=== PATIENT | female | born 1955 | race African-American/Black ===

== ENCOUNTER 2017-02-05 17:24 | Inpatient (IN) | payer OTHER ==
[~2017-02-05] VITALS: Ht 162.6 cm; Wt 62.1 kg
[2017-02-05 18:13] LABS: BASOPHIL (%) 0.2 % (0-1); EOSINOPHIL (%) 0 % (0-5); HEMATOCRIT 35.8 % (36.0-46.0); HEMOGLOBIN 12.5 G/DL (11.9-15.5); IMMATURE GRANULOCYTE (%) 0.6 % (0.0-0.7); LYMPHOCYTE (%) 6.7 % (15-42); LYMPHOCYTE COUNT 1.5 K/uL (1.0-2.8); MCH 32.5 PG (29.0-34.0); MCHC 34.9 G/DL (30.0-36.0); MONOCYTE (%) 8.4 % (3-12); MONOCYTE COUNT 1.9 K/uL (0-0.8); NEUTROPHIL (%) 84.1 % (45-76); NEUTROPHIL COUNT 19.2 K/uL (1.8-6.4); PLATELET COUNT 383 K/uL (156-360); RBC DIS.WIDTH-CV 12.4 % (11.8-14.6); RBC DIS.WIDTH-SD 42.2 % (39-53); RED BLOOD COUNT 3.85 M/uL (3.80-5.20); WHITE BLOOD COUNT 22.8 K/uL (4.1-10.2)
[2017-02-05 18:24] LABS: CHLORIDE 94 mEq/L (99-109); POTASSIUM 3.7 mEq/L (3.7-5.4); SODIUM 127 mEq/L (136-147)
[2017-02-05 18:25] LABS: GLUCOSE 332 mg/dL (70-99)
[2017-02-05 18:29] LABS: CREATININE 0.9 mg/dL (0.6-1.3)
[2017-02-05 18:30] LABS: UREA NITROGEN (BUN) 17 mg/dL (9-23)
[2017-02-05 18:41] LABS: GFR ESTIMATE (CALCULATED) > 59 mL/min/
[2017-02-05 22:24] LABS: APPEARANCE CLOUDY ((CLEAR)); BILIRUBIN NEGATIVE; BLOOD SMALL; COLOR AMBER ((YELLOW)); GLUCOSE (STRIP) >=500; KETONES 5; LEUKOCYTES NEGATIVE; NITRITE NEGATIVE; PROTEIN (STRIP) >=500; SPECIFIC GRAVITY 1.032 (1.000-1.030)
[2017-02-05] MEDS ORDERED: ERGOCALCIF50000 UNIT PO (22:30)
[2017-02-05] MEDS ORDERED: BASAGLAR K100 UNIT/1 SC (22:32)
[2017-02-05] MEDS ORDERED: LISINOPRIL10 MG PO (22:34)
[2017-02-05] MEDS ORDERED: PAROXETINE HCL30 MG PO (22:35)
[2017-02-05] MEDS ORDERED: PRAVASTATIN SOD40 MG PO (22:36)
[2017-02-05] MEDS ORDERED: CLOPIDOGREL75 MG PO (22:37)
[2017-02-05 22:40] LABS: BACTERIA 1+ /HPF; EPITHELIAL CELLS 2+ /HPF; MUCUS NONE SEEN /LPF; RED BLOOD CELLS 0-5 /HPF (0-5); UCUL ADDED? NO; WHITE BLOOD CELLS 0-5 /HPF (0-5)
[2017-02-05 22:41] LABS: COARSE GRANULAR CASTS 0-5 /LPF; FINE GRANULAR CASTS 0-5 /LPF; HYALINE CASTS 15-20 /LPF
[2017-02-05 22:42] LABS: AMORPHOUS URATES CRYSTALS 3+
[2017-02-06 02:12] VITALS: BP 127/61
[2017-02-06 07:41] VITALS: BP 142/69
[2017-02-06 08:22] LABS: BASOPHIL (%) 0.2 % (0-1); BASOPHIL COUNT 0.1 K/uL (0-0.1); EOSINOPHIL (%) 0.1 % (0-5); HEMATOCRIT 32.4 % (36.0-46.0); HEMOGLOBIN 11.1 G/DL (11.9-15.5); IMMATURE GRANULOCYTE (%) 0.5 % (0.0-0.7); LYMPHOCYTE (%) 11.1 % (15-42); LYMPHOCYTE COUNT 2.8 K/uL (1.0-2.8); MCH 32.6 PG (29.0-34.0); MCHC 34.3 G/DL (30.0-36.0); MONOCYTE (%) 10.4 % (3-12); MONOCYTE COUNT 2.7 K/uL (0-0.8); NEUTROPHIL (%) 77.7 % (45-76); NEUTROPHIL COUNT 19.8 K/uL (1.8-6.4); PLATELET COUNT 345 K/uL (156-360); RBC DIS.WIDTH-CV 12.7 % (11.8-14.6); RBC DIS.WIDTH-SD 44.3 % (39-53); RED BLOOD COUNT 3.41 M/uL (3.80-5.20); WHITE BLOOD COUNT 25.5 K/uL (4.1-10.2)
[2017-02-06 08:47] LABS: CHLORIDE 99 MEQ/L (99-109); CREATININE 0.8 MG/DL (0.6-1.3); GFR ESTIMATE (CALCULATED) > 59 mL/min/; GLUCOSE 172 mg/dL (70-99); POTASSIUM 3.4 MEQ/L (3.7-5.4); SODIUM 134 MEQ/L (136-147); UREA NITROGEN (BUN) 14 mg/dL (9-23)
[2017-02-06 11:41] VITALS: BP 190/96
[2017-02-06 12:39] LABS: Estimated Average Glucose 315 mg/dL (70-123); HEMOGLOBIN A1c (GLYCOHEMOGLOB) 12.6 % HGB (Below 5.7)
[2017-02-06 15:19] VITALS: BP 159/69
[2017-02-06 19:19] VITALS: BP 122/75
[2017-02-06 20:00] VITALS: BP 111/58
[2017-02-07] VITALS (7 sets, daily range): BP systolic 131–197; BP diastolic 61–93
[2017-02-07 06:50] LABS: BASOPHIL (%) 0.2 % (0-1); EOSINOPHIL (%) 0.2 % (0-5); HEMATOCRIT 29.2 % (36.0-46.0); IMMATURE GRANULOCYTE (%) 0.5 % (0.0-0.7); LYMPHOCYTE (%) 16.9 % (15-42); LYMPHOCYTE COUNT 3.1 K/uL (1.0-2.8); MCH 32.7 PG (29.0-34.0); MCHC 34.2 G/DL (30.0-36.0); MCV 95.4 FL (83-99); MONOCYTE (%) 9.7 % (3-12); MONOCYTE COUNT 1.8 K/uL (0-0.8); NEUTROPHIL (%) 72.5 % (45-76); NEUTROPHIL COUNT 13.2 K/uL (1.8-6.4); PLATELET COUNT 360 K/uL (156-360); RBC DIS.WIDTH-CV 12.7 % (11.8-14.6); RBC DIS.WIDTH-SD 44.8 % (39-53); RED BLOOD COUNT 3.06 M/uL (3.80-5.20); WHITE BLOOD COUNT 18.2 K/uL (4.1-10.2)
[2017-02-07 07:19] LABS: CHLORIDE 102 MEQ/L (99-109); CREATININE 0.9 MG/DL (0.6-1.3); GFR ESTIMATE (CALCULATED) > 59 mL/min/; GLUCOSE 113 mg/dL (70-99); POTASSIUM 4.1 MEQ/L (3.7-5.4); SODIUM 135 MEQ/L (136-147); UREA NITROGEN (BUN) 14 mg/dL (9-23)
[2017-02-08] VITALS (7 sets, daily range): BP systolic 140–188; BP diastolic 72–90
[2017-02-08 06:19] LABS: BASOPHIL (%) 0.3 % (0-1); EOSINOPHIL (%) 0.5 % (0-5); EOSINOPHIL COUNT 0.1 K/uL (0-0.3); HEMATOCRIT 32.5 % (36.0-46.0); HEMOGLOBIN 11.1 G/DL (11.9-15.5); IMMATURE GRANULOCYTE (%) 0.5 % (0.0-0.7); LYMPHOCYTE (%) 14.4 % (15-42); LYMPHOCYTE COUNT 2.1 K/uL (1.0-2.8); MCH 32.6 PG (29.0-34.0); MCHC 34.2 G/DL (30.0-36.0); MCV 95.6 FL (83-99); MONOCYTE (%) 11.5 % (3-12); MONOCYTE COUNT 1.7 K/uL (0-0.8); NEUTROPHIL (%) 72.8 % (45-76); NEUTROPHIL COUNT 10.7 K/uL (1.8-6.4); PLATELET COUNT 421 K/uL (156-360); RBC DIS.WIDTH-CV 12.8 % (11.8-14.6); RBC DIS.WIDTH-SD 45.6 % (39-53); WHITE BLOOD COUNT 14.7 K/uL (4.1-10.2)
[2017-02-08 06:44] LABS: ALBUMIN 2.1 G/DL (3.2-4.8); ALKALINE PHOSPHATASE 88 IU/L (3-129); ALT (GPT) 5 IU/L (3-49); AST (GOT) 13 IU/L (2-34); CHLORIDE 105 MEQ/L (99-109); CREATININE 1.1 MG/DL (0.6-1.3); GFR ESTIMATE (CALCULATED) > 59 mL/min/; GLUCOSE 85 mg/dL (70-99); POTASSIUM 4.1 MEQ/L (3.7-5.4); SODIUM 139 MEQ/L (136-147); TOTAL BILIRUBIN 0.3 MG/DL (0.0-1.0); TOTAL PROTEIN 5.2 G/DL (6.4-8.3); UREA NITROGEN (BUN) 14 mg/dL (9-23)
[2017-02-08 08:58] LABS: HDL CHOLESTEROL 34 MG/DL (Desirable>=50); LDL CHOLESTEROL 98 mg/dL (Desirable<100); NON-HDL CHOLESTEROL 121 mg/dL (Desirable<160); TOTAL CHOLESTEROL 155 mg/dL (Desirable<200); TRIGLYCERIDES 116 MG/DL (Normal: <150)
[2017-02-09 03:30] VITALS: BP 182/84
[2017-02-09 07:24] LABS: BASOPHIL (%) 0.4 % (0-1); BASOPHIL COUNT 0.1 K/uL (0-0.1); EOSINOPHIL (%) 1.3 % (0-5); EOSINOPHIL COUNT 0.2 K/uL (0-0.3); HEMATOCRIT 32.9 % (36.0-46.0); HEMOGLOBIN 11.3 G/DL (11.9-15.5); IMMATURE GRANULOCYTE (%) 0.4 % (0.0-0.7); LYMPHOCYTE (%) 16.4 % (15-42); LYMPHOCYTE COUNT 2.2 K/uL (1.0-2.8); MCH 32.8 PG (29.0-34.0); MCHC 34.3 G/DL (30.0-36.0); MCV 95.4 FL (83-99); MONOCYTE (%) 12.2 % (3-12); MONOCYTE COUNT 1.6 K/uL (0-0.8); NEUTROPHIL (%) 69.3 % (45-76); NEUTROPHIL COUNT 9.1 K/uL (1.8-6.4); PLATELET COUNT 453 K/uL (156-360); RBC DIS.WIDTH-CV 12.7 % (11.8-14.6); RED BLOOD COUNT 3.45 M/uL (3.80-5.20); WHITE BLOOD COUNT 13.1 K/uL (4.1-10.2)
[2017-02-09 07:46] LABS: ALBUMIN 2.2 G/DL (3.2-4.8); ALKALINE PHOSPHATASE 86 IU/L (3-129); ALT (GPT) 5 IU/L (3-49); AST (GOT) 12 IU/L (2-34); CHLORIDE 105 MEQ/L (99-109); CREATININE 1.1 MG/DL (0.6-1.3); GFR ESTIMATE (CALCULATED) > 59 mL/min/; GLUCOSE 75 mg/dL (70-99); POTASSIUM 3.8 MEQ/L (3.7-5.4); SODIUM 140 MEQ/L (136-147); TOTAL BILIRUBIN 0.3 MG/DL (0.0-1.0); TOTAL PROTEIN 5.2 G/DL (6.4-8.3); UREA NITROGEN (BUN) 13 mg/dL (9-23)
[2017-02-09 08:00] VITALS: BP 178/80
[2017-02-09 12:00] VITALS: BP 179/87
[2017-02-09 16:00] VITALS: BP 186/84
[2017-02-09 20:28] VITALS: BP 190/84
[2017-02-09 23:39] VITALS: BP 180/79
[2017-02-10 03:56] VITALS: BP 167/73
[2017-02-10 05:15] LABS: BASOPHIL (%) 0.7 % (0-1); BASOPHIL COUNT 0.1 K/uL (0-0.1); EOSINOPHIL (%) 1.1 % (0-5); EOSINOPHIL COUNT 0.1 K/uL (0-0.3); HEMATOCRIT 34.2 % (36.0-46.0); HEMOGLOBIN 11.4 G/DL (11.9-15.5); IMMATURE GRANULOCYTE (%) 0.5 % (0.0-0.7); LYMPHOCYTE (%) 18.8 % (15-42); LYMPHOCYTE COUNT 2.2 K/uL (1.0-2.8); MCH 31.5 PG (29.0-34.0); MCHC 33.3 G/DL (30.0-36.0); MCV 94.5 FL (83-99); MONOCYTE (%) 11.4 % (3-12); MONOCYTE COUNT 1.3 K/uL (0-0.8); NEUTROPHIL (%) 67.5 % (45-76); NEUTROPHIL COUNT 7.8 K/uL (1.8-6.4); PLATELET COUNT 504 K/uL (156-360); RBC DIS.WIDTH-CV 12.5 % (11.8-14.6); RBC DIS.WIDTH-SD 43.6 % (39-53); RED BLOOD COUNT 3.62 M/uL (3.80-5.20); WHITE BLOOD COUNT 11.5 K/uL (4.1-10.2)
[2017-02-10 05:54] LABS: ALBUMIN 2.1 G/DL (3.2-4.8); ALKALINE PHOSPHATASE 79 IU/L (3-129); ALT (GPT) 5 IU/L (3-49); AST (GOT) 13 IU/L (2-34); CHLORIDE 103 MEQ/L (99-109); CREATININE 1.4 MG/DL (0.6-1.3); GFR ESTIMATE (CALCULATED) 50 mL/min/; GLUCOSE 133 mg/dL (70-99); POTASSIUM 3.9 MEQ/L (3.7-5.4); SODIUM 140 MEQ/L (136-147); TOTAL BILIRUBIN 0.3 MG/DL (0.0-1.0); UREA NITROGEN (BUN) 16 mg/dL (9-23)
[2017-02-10 08:00] VITALS: BP 192/86
[2017-02-10 12:00] VITALS: BP 190/89
[2017-02-10 20:08] VITALS: BP 191/87
[2017-02-10 23:58] VITALS: BP 188/84
[2017-02-11 03:53] VITALS: BP 182/82
[2017-02-11 04:23] VITALS: BP 150/60
[2017-02-11 06:12] LABS: BASOPHIL (%) 0.5 % (0-1); BASOPHIL COUNT 0.1 K/uL (0-0.1); EOSINOPHIL (%) 1.3 % (0-5); EOSINOPHIL COUNT 0.2 K/uL (0-0.3); HEMATOCRIT 33.4 % (36.0-46.0); HEMOGLOBIN 11.6 G/DL (11.9-15.5); IMMATURE GRANULOCYTE (%) 0.6 % (0.0-0.7); LYMPHOCYTE (%) 16.5 % (15-42); LYMPHOCYTE COUNT 2.4 K/uL (1.0-2.8); MCH 32.5 PG (29.0-34.0); MCHC 34.7 G/DL (30.0-36.0); MCV 93.6 FL (83-99); MONOCYTE (%) 10.5 % (3-12); MONOCYTE COUNT 1.5 K/uL (0-0.8); NEUTROPHIL (%) 70.6 % (45-76); NEUTROPHIL COUNT 10.2 K/uL (1.8-6.4); PLATELET COUNT 471 K/uL (156-360); RBC DIS.WIDTH-CV 12.4 % (11.8-14.6); RBC DIS.WIDTH-SD 42.5 % (39-53); RED BLOOD COUNT 3.57 M/uL (3.80-5.20); WHITE BLOOD COUNT 14.4 K/uL (4.1-10.2)
[2017-02-11 06:38] LABS: ALBUMIN 2.1 G/DL (3.2-4.8); ALKALINE PHOSPHATASE 91 IU/L (3-129); ALT (GPT) 7 IU/L (3-49); AST (GOT) 18 IU/L (2-34); CHLORIDE 103 MEQ/L (99-109); CREATININE 1.3 MG/DL (0.6-1.3); GFR ESTIMATE (CALCULATED) 54 mL/min/; GLUCOSE 108 mg/dL (70-99); POTASSIUM 3.4 MEQ/L (3.7-5.4); SODIUM 137 MEQ/L (136-147); TOTAL BILIRUBIN 0.3 MG/DL (0.0-1.0); UREA NITROGEN (BUN) 17 mg/dL (9-23)
[2017-02-11 07:08] VITALS: BP 145/66
[2017-02-11 10:58] VITALS: BP 146/67
[2017-02-11 23:59] VITALS: BP 176/84
[2017-02-12 06:49] LABS: BASOPHIL (%) 0.3 % (0-1); BASOPHIL COUNT 0.1 K/uL (0-0.1); EOSINOPHIL (%) 2.3 % (0-5); EOSINOPHIL COUNT 0.3 K/uL (0-0.3); HEMATOCRIT 31.3 % (36.0-46.0); HEMOGLOBIN 10.6 G/DL (11.9-15.5); IMMATURE GRANULOCYTE (%) 0.7 % (0.0-0.7); LYMPHOCYTE (%) 20.4 % (15-42); MCH 32.1 PG (29.0-34.0); MCHC 33.9 G/DL (30.0-36.0); MCV 94.8 FL (83-99); MONOCYTE (%) 10.5 % (3-12); MONOCYTE COUNT 1.5 K/uL (0-0.8); NEUTROPHIL (%) 65.8 % (45-76); NEUTROPHIL COUNT 9.5 K/uL (1.8-6.4); PLATELET COUNT 482 K/uL (156-360); RBC DIS.WIDTH-CV 12.7 % (11.8-14.6); RBC DIS.WIDTH-SD 44.5 % (39-53); WHITE BLOOD COUNT 14.5 K/uL (4.1-10.2)
[2017-02-12 07:02] VITALS: BP 172/79
[2017-02-12 07:02] LABS: CHLORIDE 103 MEQ/L (99-109); CREATININE 1.4 MG/DL (0.6-1.3); GFR ESTIMATE (CALCULATED) 50 mL/min/; POTASSIUM 3.6 MEQ/L (3.7-5.4); SODIUM 137 MEQ/L (136-147); UREA NITROGEN (BUN) 20 mg/dL (9-23)
[2017-02-12 07:06] LABS: GLUCOSE 176 mg/dL (70-99)
[2017-02-12 14:28] LABS: APPEARANCE SL.HAZY ((CLEAR)); BILIRUBIN NEGATIVE; BLOOD SMALL; COLOR YELLOW ((YELLOW)); GLUCOSE (STRIP) 50; KETONES NEGATIVE; LEUKOCYTES LARGE; NITRITE NEGATIVE; PROTEIN (STRIP) 30
[2017-02-12 15:07] VITALS: BP 165/81
[2017-02-12 15:15] LABS: EPITHELIAL CELLS 1+ /HPF
[2017-02-12 15:16] LABS: BACTERIA 1+ /HPF; MUCUS NONE SEEN /LPF; UCUL ADDED? YES
[2017-02-12 23:24] VITALS: BP 176/79
[2017-02-13 07:10] LABS: CHLORIDE 105 MEQ/L (99-109); CREATININE 1.6 MG/DL (0.6-1.3); GFR ESTIMATE (CALCULATED) 42 mL/min/; GLUCOSE 196 mg/dL (70-99); SODIUM 137 MEQ/L (136-147); UREA NITROGEN (BUN) 21 mg/dL (9-23)
[2017-02-13 07:19] LABS: POTASSIUM 4.4 MEQ/L (3.7-5.4)
[2017-02-13 07:31] VITALS: BP 134/75
[2017-02-13 15:32] VITALS: BP 123/59
[2017-02-13] MEDS ORDERED: MIRTAZAPINE15 MG PO (16:17)
[2017-02-13] MEDS ORDERED: AMOX TR-K CLV1 EAC4 PO (16:17)
[2017-02-13] MEDS ORDERED: ASPIR-LOW81 MG PO (16:17)
[2017-02-13] MEDS ORDERED: AMLODIPINE BESY10 MG PO (16:17)
[2017-02-13] MEDS ORDERED: PAROXETINE HCL10 MG PO (16:17)
[2017-02-13] MEDS ORDERED: METOPROLOL TART75 MG PO (16:17)
== END 2017-02-13 17:50 | disposition home health service (06) | DRG 570 ==
LOC: EME 17:24 → SDC 22:55 → 2SOUTH 02-06 00:15 → 2EAST 02-06 00:15 → ENRESERV 02-06 00:24 → 2EAST 02-06 02:04 → ENRESERV 02-08 08:34 → 5SOUTH 02-08 11:59
PROVIDERS: Emergency Medicine; Hospitalist; Physician Assistant; Surgery
PROC: 0J9B0ZZ Drainage of Perineum Subcutaneous Tissue and Fascia, Open Approach (ICD-10-PCS; principal; 2017-02-06)
PROC: 0JBB0ZZ Excision of Perineum Subcutaneous Tissue and Fascia, Open Approach (ICD-10-PCS; principal; 2017-02-06)
PROC: 0JB90ZZ Excision of Buttock Subcutaneous Tissue and Fascia, Open Approach (ICD-10-PCS; principal; 2017-02-06)
PROC: 0J990ZZ Drainage of Buttock Subcutaneous Tissue and Fascia, Open Approach (ICD-10-PCS; principal; 2017-02-06)
DX: L02.215 Cutaneous abscess of perineum (principal); L02.31 Cutaneous abscess of buttock; B95.1 Streptococcus, group B, as the cause of diseases classified elsewhere; N17.9 Acute kidney failure, unspecified; I63.9 Cerebral infarction, unspecified; E11.65 Type 2 diabetes mellitus with hyperglycemia; E87.1 Hypo-osmolality and hyponatremia; E87.6 Hypokalemia; I10 Essential (primary) hypertension; I69.351 Hemiplegia and hemiparesis following cerebral infarction affecting right dominant side; Z91.19 Patient's noncompliance with other medical treatment and regimen; M79.606 Pain in leg, unspecified; E78.5 Hyperlipidemia, unspecified; K59.00 Constipation, unspecified; R11.10 Vomiting, unspecified; R26.9 Unspecified abnormalities of gait and mobility; R42 Dizziness and giddiness; R63.4 Abnormal weight loss; F32.9 Major depressive disorder, single episode, unspecified; F17.200 Nicotine dependence, unspecified, uncomplicated; Z79.4 Long term (current) use of insulin; Z79.82 Long term (current) use of aspirin; Z81.8 Family history of other mental and behavioral disorders; Z82.49 Family history of ischemic heart disease and other diseases of the circulatory system
CPT/HCPCS: 70450; 70470; 70551; 71010; 80048; 80053; 80061; 81003; 82948; 83036; 83605; 85025; 87040; 87070; 87075; 87077; 87086; 87106; 87186; 87205; 90686; 93005; 93306; 93880; 97530 GO; 99281; 99285; A6260; J0295; J0360; J1644; J1815; J2270; J2405; J2543; J3010; J3370; J7050; J7120; S0028

== ENCOUNTER 2017-05-03 17:01 | Inpatient (IN) | payer BC ==
[~2017-05-03] VITALS: Ht 162.6 cm; Wt 66.4 kg
[~2017-05-03 17:01] MED LIST: AMLODIPINE BESY10 MG PO; AMOX TR-K CLV1 EAC4 PO; ASPIR-LOW81 MG PO; BASAGLAR K100 UNIT/1 SC; CLOPIDOGREL75 MG PO; ERGOCALCIF50000 UNIT PO; LISINOPRIL10 MG PO; METOPROLOL TART75 MG PO; MIRTAZAPINE15 MG PO; PAROXETINE HCL10 MG PO; PAROXETINE HCL30 MG PO; PRAVASTATIN SOD40 MG PO
[2017-05-03 17:57] LABS: HEMATOCRIT 33.2 % (36.0-46.0); HEMOGLOBIN 11.4 G/DL (11.9-15.5); MCH 32.8 PG (29.0-34.0); MCHC 34.3 G/DL (30.0-36.0); MCV 95.4 FL (83-99); PLATELET COUNT 360 K/uL (156-360); RBC DIS.WIDTH-CV 13.7 % (11.8-14.6); RBC DIS.WIDTH-SD 48.3 % (39-53); RED BLOOD COUNT 3.48 M/uL (3.80-5.20); WHITE BLOOD COUNT 10.3 K/uL (4.1-10.2)
[2017-05-03 18:05] LABS: CHLORIDE 92 mEq/L (99-109); POTASSIUM 4.7 mEq/L (3.7-5.4); SODIUM 126 mEq/L (136-147)
[2017-05-03 18:11] LABS: CREATININE 1.5 mg/dL (0.6-1.3); GFR ESTIMATE (CALCULATED) 46 mL/min/
[2017-05-03 18:12] LABS: UREA NITROGEN (BUN) 37 mg/dL (9-23)
[2017-05-03 18:15] LABS: GLUCOSE 676 mg/dL (70-99)
[2017-05-03 18:28] LABS: INTER. NORMALIZED RATIO 1.2
[2017-05-03 18:30] LABS: PTT 30.7 SEC (25-37)
[2017-05-03 18:46] LABS: BASOPHIL (%) 0.7 % (0-1); BASOPHIL COUNT 0.1 K/uL (0-0.1); EOSINOPHIL (%) 0.8 % (0-5); EOSINOPHIL COUNT 0.1 K/uL (0-0.3); HEMATOCRIT 33.4 % (36.0-46.0); HEMOGLOBIN 11.4 G/DL (11.9-15.5); IMMATURE GRANULOCYTE (%) 0.3 % (0.0-0.7); LYMPHOCYTE (%) 23.3 % (15-42); LYMPHOCYTE COUNT 2.4 K/uL (1.0-2.8); MCH 32.8 PG (29.0-34.0); MCHC 34.1 G/DL (30.0-36.0); MONOCYTE (%) 9.7 % (3-12); NEUTROPHIL (%) 65.2 % (45-76); NEUTROPHIL COUNT 6.8 K/uL (1.8-6.4); PLATELET COUNT 368 K/uL (156-360); RBC DIS.WIDTH-CV 13.7 % (11.8-14.6); RBC DIS.WIDTH-SD 48.4 % (39-53); RED BLOOD COUNT 3.48 M/uL (3.80-5.20); WHITE BLOOD COUNT 10.4 K/uL (4.1-10.2)
[2017-05-03 18:47] LABS: TROP-I INTERPRETATION NEGATIVE; TROPONIN-I < 0.01 ng/mL (0.0-0.30)
[2017-05-03] MEDS ORDERED: ADULT ASPIRIN R81 MG PO (19:29)
[2017-05-03] MEDS ORDERED: BASAGLAR K100 UNIT/1 SC (19:30)
[2017-05-03] MEDS ORDERED: LISINOPRIL20 MG PO (19:31)
[2017-05-03] MEDS ORDERED: CHLORTHALIDONE25 MG PO (19:31)
[2017-05-03 20:58] LABS: HDL CHOLESTEROL 45 MG/DL (Desirable>=50); LDL CHOLESTEROL 174 mg/dL (Desirable<100); NON-HDL CHOLESTEROL 236 mg/dL (Desirable<160); TOTAL CHOLESTEROL 281 mg/dL (Desirable<200); TRIGLYCERIDES 308 MG/DL (Normal: <150)
[2017-05-03 21:35] VITALS: BP 147/69
[2017-05-03 23:30] VITALS: BP 131/66
[2017-05-04 03:41] VITALS: BP 133/67
[2017-05-04 06:38] LABS: APPEARANCE SL.HAZY ((CLEAR)); BILIRUBIN NEGATIVE; BLOOD NEGATIVE; COLOR YELLOW ((YELLOW)); GLUCOSE (STRIP) >=500; KETONES NEGATIVE; LEUKOCYTES NEGATIVE; NITRITE NEGATIVE; PROTEIN (STRIP) 100; SPECIFIC GRAVITY 1.011 (1.000-1.030); UROBILINOGEN 0.2 MG/DL (0.2-1.0)
[2017-05-04 06:48] LABS: BENZODIAZEPINES, URINE SCREEN Negative (200 ng/mL)
[2017-05-04 07:31] LABS: AMORPHOUS URATES CRYSTALS FEW; BACTERIA NONE SEEN /HPF; EPITHELIAL CELLS NONE SEEN /HPF; MUCUS NONE SEEN /LPF; RED BLOOD CELLS 0-5 /HPF (0-5); UCUL ADDED? NO; WHITE BLOOD CELLS 0-5 /HPF (0-5)
[2017-05-04 08:00] VITALS: BP 137/90
[2017-05-04 10:22] LABS: BASOPHIL (%) 0.9 % (0-1); BASOPHIL COUNT 0.1 K/uL (0-0.1); EOSINOPHIL (%) 2.4 % (0-5); EOSINOPHIL COUNT 0.2 K/uL (0-0.3); HEMATOCRIT 32.9 % (36.0-46.0); HEMOGLOBIN 10.8 G/DL (11.9-15.5); IMMATURE GRANULOCYTE (%) 0.5 % (0.0-0.7); LYMPHOCYTE (%) 35.3 % (15-42); LYMPHOCYTE COUNT 3.3 K/uL (1.0-2.8); MCH 31.3 PG (29.0-34.0); MCHC 32.8 G/DL (30.0-36.0); MCV 95.4 FL (83-99); MONOCYTE (%) 10.6 % (3-12); NEUTROPHIL (%) 50.3 % (45-76); NEUTROPHIL COUNT 4.6 K/uL (1.8-6.4); PLATELET COUNT 348 K/uL (156-360); RBC DIS.WIDTH-CV 13.7 % (11.8-14.6); RBC DIS.WIDTH-SD 47.8 % (39-53); RED BLOOD COUNT 3.45 M/uL (3.80-5.20); WHITE BLOOD COUNT 9.2 K/uL (4.1-10.2)
[2017-05-04 10:50] LABS: CHLORIDE 103 MEQ/L (99-109); POTASSIUM 4.5 MEQ/L (3.7-5.4); UREA NITROGEN (BUN) 29 mg/dL (9-23)
[2017-05-04 10:51] LABS: HEMOGLOBIN A1c (GLYCOHEMOGLOB) 10.4 % (Below 5.7)
[2017-05-04 11:00] LABS: CREATININE 0.9 MG/DL (0.6-1.3); GFR ESTIMATE (CALCULATED) > 59 mL/min/; GLUCOSE 179 mg/dL (70-99); SODIUM 134 MEQ/L (136-147)
[2017-05-04 12:11] VITALS: BP 185/89
[2017-05-04 16:00] VITALS: BP 162/77
[2017-05-04 18:58] VITALS: BP 176/82
[2017-05-05 00:10] VITALS: BP 150/68
[2017-05-05 04:14] VITALS: BP 121/66
[2017-05-05 06:05] LABS: BASOPHIL COUNT 0.1 K/uL (0-0.1); EOSINOPHIL (%) 1.1 % (0-5); EOSINOPHIL COUNT 0.1 K/uL (0-0.3); HEMATOCRIT 33.2 % (36.0-46.0); HEMOGLOBIN 11.1 G/DL (11.9-15.5); IMMATURE GRANULOCYTE (%) 0.3 % (0.0-0.7); LYMPHOCYTE COUNT 3.1 K/uL (1.0-2.8); MCH 31.5 PG (29.0-34.0); MCHC 33.4 G/DL (30.0-36.0); MCV 94.3 FL (83-99); MONOCYTE (%) 13.9 % (3-12); MONOCYTE COUNT 1.5 K/uL (0-0.8); NEUTROPHIL (%) 54.7 % (45-76); NEUTROPHIL COUNT 5.8 K/uL (1.8-6.4); PLATELET COUNT 348 K/uL (156-360); RBC DIS.WIDTH-CV 13.3 % (11.8-14.6); RED BLOOD COUNT 3.52 M/uL (3.80-5.20); WHITE BLOOD COUNT 10.6 K/uL (4.1-10.2)
[2017-05-05 06:29] LABS: CHLORIDE 101 MEQ/L (99-109); CREATININE 0.9 MG/DL (0.6-1.3); GFR ESTIMATE (CALCULATED) > 59 mL/min/; GLUCOSE 209 mg/dL (70-99); POTASSIUM 4.2 MEQ/L (3.7-5.4); SODIUM 131 MEQ/L (136-147); UREA NITROGEN (BUN) 21 mg/dL (9-23)
[2017-05-05 07:18] VITALS: BP 140/65
[2017-05-05 12:08] VITALS: BP 183/80
[2017-05-05 19:30] VITALS: BP 177/79
[2017-05-05 23:48] VITALS: BP 162/77
[2017-05-06 04:00] VITALS: BP 156/74
[2017-05-06 06:26] LABS: HEMATOCRIT 34.7 % (36.0-46.0); HEMOGLOBIN 11.9 G/DL (11.9-15.5); MCH 32.7 PG (29.0-34.0); MCHC 34.3 G/DL (30.0-36.0); MCV 95.3 FL (83-99); PLATELET COUNT 298 K/uL (156-360); RBC DIS.WIDTH-CV 13.3 % (11.8-14.6); RBC DIS.WIDTH-SD 47.4 % (39-53); RED BLOOD COUNT 3.64 M/uL (3.80-5.20); WHITE BLOOD COUNT 9.4 K/uL (4.1-10.2)
[2017-05-06 06:52] LABS: CHLORIDE 103 MEQ/L (99-109); POTASSIUM 4.5 MEQ/L (3.7-5.4); SODIUM 133 MEQ/L (136-147)
[2017-05-06 06:57] LABS: CREATININE 0.9 MG/DL (0.6-1.3); GFR ESTIMATE (CALCULATED) > 59 mL/min/; GLUCOSE 156 mg/dL (70-99); UREA NITROGEN (BUN) 25 mg/dL (9-23)
[2017-05-06 11:11] VITALS: BP 132/62
[2017-05-06 15:08] VITALS: BP 184/86
[2017-05-06 20:14] VITALS: BP 162/80
[2017-05-07] VITALS (7 sets, daily range): BP systolic 123–194; BP diastolic 58–88
[2017-05-08 03:31] VITALS: BP 121/63
[2017-05-08 07:05] VITALS: BP 108/53
[2017-05-08 13:20] VITALS: BP 118/52
[2017-05-08 15:24] VITALS: BP 140/65
[2017-05-08 19:29] VITALS: BP 162/72
[2017-05-08 23:25] VITALS: BP 137/70
[2017-05-09 04:00] VITALS: BP 106/51
[2017-05-09 07:27] VITALS: BP 125/66
[2017-05-09 12:03] VITALS: BP 144/89
[2017-05-09 16:02] VITALS: BP 170/77
[2017-05-09 19:35] VITALS: BP 130/62
[2017-05-09 23:21] VITALS: BP 135/57
[2017-05-10 03:25] VITALS: BP 129/56
[2017-05-10 07:15] VITALS: BP 123/62
[2017-05-10 11:44] VITALS: BP 98/50
[2017-05-10 20:04] VITALS: BP 148/98
[2017-05-11 00:34] VITALS: BP 157/67
[2017-05-11 04:35] VITALS: BP 105/54
[2017-05-11 07:52] VITALS: BP 103/51
[2017-05-11 17:04] VITALS: BP 147/67
[2017-05-11 20:00] VITALS: BP 159/72
[2017-05-12] VITALS: BP 125/62
[2017-05-12 04:00] VITALS: BP 129/61; BP 187/81
[2017-05-12 06:57] LABS: CHLORIDE 105 MEQ/L (99-109); CREATININE 0.9 MG/DL (0.6-1.3); GFR ESTIMATE (CALCULATED) > 59 mL/min/; GLUCOSE 99 mg/dL (70-99); POTASSIUM 4.4 MEQ/L (3.7-5.4); SODIUM 134 MEQ/L (136-147)
[2017-05-12 07:00] LABS: UREA NITROGEN (BUN) 39 mg/dL (9-23)
[2017-05-12 07:35] VITALS: BP 128/62
[2017-05-12 08:20] LABS: HEMATOCRIT 30.8 % (36.0-46.0); HEMOGLOBIN 10.4 G/DL (11.9-15.5); MCH 32.1 PG (29.0-34.0); MCHC 33.8 G/DL (30.0-36.0); MCV 95.1 FL (83-99); RBC DIS.WIDTH-CV 13.3 % (11.8-14.6); RBC DIS.WIDTH-SD 46.5 % (39-53); RED BLOOD COUNT 3.24 M/uL (3.80-5.20); WHITE BLOOD COUNT 9.7 K/uL (4.1-10.2)
[2017-05-12 08:50] LABS: HEMATOLOGY COMMENT 1 SMEAR COMPATIBLE; PLATELET COUNT 357 K/uL (156-360)
[2017-05-12 11:08] VITALS: BP 122/54
[2017-05-12] MEDS ORDERED: LISINOPRIL20 MG PO (13:18)
[2017-05-12] MEDS ORDERED: LOPRESSOR50 MG PO (13:18)
[2017-05-12] MEDS ORDERED: ATORVASTATIN CA40 MG PO (13:18)
[2017-05-12] MEDS ORDERED: POLYETHYLENE GL17 GM PO (13:19)
[2017-05-12 15:03] VITALS: BP 122/57
== END 2017-05-12 17:40 | DRG 65 ==
LOC: EME 17:01 → 5SOUTH 20:07 → EDOF 20:07 → ENRESERV 20:09 → 5SOUTH 21:13 → ENPENDDIS 05-12 13:18 → 5SOUTH 05-12 17:40
PROVIDERS: Emergency Medicine; Family Medicine; Internal Medicine
DX: I63.512 Cerebral infarction due to unspecified occlusion or stenosis of left middle cerebral artery (principal); R47.1 Dysarthria and anarthria; R13.10 Dysphagia, unspecified; H50.9 Unspecified strabismus; E87.1 Hypo-osmolality and hyponatremia; E11.65 Type 2 diabetes mellitus with hyperglycemia; I69.351 Hemiplegia and hemiparesis following cerebral infarction affecting right dominant side; I12.9 Hypertensive chronic kidney disease with stage 1 through stage 4 chronic kidney disease, or unspecified chronic kidney disease; E11.22 Type 2 diabetes mellitus with diabetic chronic kidney disease; N18.9 Chronic kidney disease, unspecified; D47.3 Essential (hemorrhagic) thrombocythemia; E78.00 Pure hypercholesterolemia, unspecified; E78.5 Hyperlipidemia, unspecified; F17.210 Nicotine dependence, cigarettes, uncomplicated; F32.9 Major depressive disorder, single episode, unspecified; K21.9 Gastro-esophageal reflux disease without esophagitis; Z79.4 Long term (current) use of insulin; Z23 Encounter for immunization; Z79.82 Long term (current) use of aspirin
CPT/HCPCS: 70450; 70551; 71046; 74230; 80048; 80061; 80306 90; 81003; 82150; 82948; 83036; 83690; 84439; 84443; 84484; 85025; 85027; 85610; 85730; 86850; 86900; 86901; 90686; 92526 GN; 92610 GN; 92611 GN; 93005; 97530 GO; 97530 GP; 99281; 99285; A6214; G0480; J1650; J1815; J7030; J7040